=== PATIENT | male | born 1940 | race Caucasian/White ===

== ENCOUNTER 2024-01-16 13:36 | Outpatient (CLI) | payer MEDICARE, SELFPAY ==
--- NOTE | 2024-01-16 14:00 | RT.EKG_ITS ---
APPROVED REPORT Exam: Resting ECG Reason for Exam: AV block Patient Location: O HR:71 bpm ECG Measurements Heart Rate 71 AXIS NC 202 P -46 QRSd 166 QRS -70 QT 456 T 112 QTc 496 Conclusion A-V dual-paced rhythm with some inhibition...atrial and/or vent inhibition No further analysis attempted due to paced rhythm
== END 2024-01-16 13:37 | disposition home or self-care (01) ==
LOC: DI.CARD 14:15
PROVIDERS: PCP Neuromusculoskeletal Medicine & OMM; Referring Provider Neuromusculoskeletal Medicine & OMM; Visit Provider Internal Medicine Cardiovascular Disease
DX: I44.30 Unspecified atrioventricular block (principal); Z95.0 Presence of cardiac pacemaker
CPT/HCPCS: 93010

== ENCOUNTER → 2024-01-16 13:36 | Outpatient (BNVA) | payer MEDICARE, SELFPAY | PROVIDERS: PCP Neuromusculoskeletal Medicine & OMM; Referring Provider Neuromusculoskeletal Medicine & OMM; Visit Provider Internal Medicine Cardiovascular Disease | DX: Z95.0 Presence of cardiac pacemaker (principal); I44.30 Unspecified atrioventricular block | CPT/HCPCS: 93005; 93280; 99203 ==

== ENCOUNTER → 2025-01-14 13:42 | Outpatient (BNVA) | payer MEDICARE, SELFPAY | PROVIDERS: PCP Neuromusculoskeletal Medicine & OMM; Referring Provider Neuromusculoskeletal Medicine & OMM; Visit Provider Registered Nurse | DX: I44.2 Atrioventricular block, complete (principal); Z45.018 Encounter for adjustment and management of other part of cardiac pacemaker; Z79.01 Long term (current) use of anticoagulants; Z79.02 Long term (current) use of antithrombotics/antiplatelets; Z79.811 Long term (current) use of aromatase inhibitors | CPT/HCPCS: 93280 ==